=== PATIENT | female | born 2000 ===

== ENCOUNTER 2024-07-23 21:22 | Emergency (ER) | payer SELFPAY ==
--- NOTE | ~2024-07-23 | US_ITS ---
CORRECTED REPORT corrected order description [facility] 07/24/24 This report was recreated on 07/24/24. Original report was Pelvic ultrasound. Clinical History: First trimester , vaginal bleeding Technique: Realtime transabdominal and transvaginal scanning of the pelvis was performed. Color flow Doppler and Doppler spectral analysis were performed. Findings: The uterus is anteverted, and contains an intrauterine gestation. Bantry-rump length of 5.8 cm corresponds to an estimated gestational age of 12 weeks 2 days. heart rate is 155 bpm. The right ovary measures 4.7 x 2.5 x 4.4 cm. Simple right ovarian cyst measures 2.3 cm in size. The left ovary measures 2.0 x 1.2 x 1.6 cm. No significant left ovarian or adnexal mass is seen. There is no evidence of free fluid in the cul de sac. Impression: Live intrauterine gestation, with estimated gestational age of 12 weeks 2 days. heart rate is 155 bpm. Reviewed, dictated and finalized at location M. MTDD Impression: Live intrauterine gestation, with estimated gestational age of 12 weeks 2 days. heart rate is 155 bpm.
[2024-07-23 21:29] VITALS: BP 113/66; PULSE 98; RESP 14; TEMP 36.5; O2SAT 100
[2024-07-23 21:55] LABS: Basophils Absolute Auto 0.1 K/mm3 (0.0-0.1); Basophils Percent Auto 0.4 % (0.2-1.2); Eosinophils Absolute Auto 0.3 K/mm3 (0-0.3); Eosinophils Percent Auto 2.1 % (0-4.4); Hematocrit 33.3 % (37.0-47.0); Hemoglobin 10.6 g/dL (12.0-15.0); Immature Granulocyte Absolute 0.05 K/mm3 (0.00-0.031); Immature Granulocyte Percent A 0.4 % (0-0.5); Lymphocytes Absolute Auto 2.31 K/mm3 (0.9-3.2); Lymphocytes Percent Auto 19.4 % (18.3-44.2); Mean Corpuscular HGB Conc 31.8 g/dl (32-36); Mean Corpuscular Hemoglobin 24.1 pg (26-34); Mean Corpuscular Volume 75.9 fl (80-100); Mean Platelet Volume 10.7 fl (7.4-10.4); Monocytes Absolute Auto 0.8 K/mm3 (0.1-0.6); Monocytes Percent Auto 6.6 % (2.6-8.5); Neutrophils Absolute Auto 8.4 K/mm3 (1.3-6.7); Neutrophils Percent Auto 71.1 % (45.5-73.1); Platelet Count Result 349 k/mm3 (150-375); Red Blood Count 4.39 M/mm3 (4.2-5.4); Red Cell Distribution Width 16.3 % (11.5-14.5); White Blood Count 11.9 K/mm3 (4.5-10.0)
[2024-07-23 22:08] LABS: Alanine Aminotransferase 12 U/L (6-35); Albumin Level 4.3 g/dL (3.5-5.1); Alkaline Phosphatase 67 U/L (38-126); Anion Gap 6 mmol/L (4-12); Aspartate Amino Transferase 17 U/L (14-36); Bilirubin,Total 0.2 mg/dL (0.2-1.3); Blood Urea Nitrogen 5 mg/dL (7-17); Calcium 9.3 mg/dL (8.4-10.2); Carbon Dioxide 24 mmol/L (22-30); Chloride 105 mmol/L (98-107); Estimated CRCL calculation 140 ml/min; Estimated Glomerular Filt Rate > 60; Glucose 102 mg/dL (65-110); Potassium 3.7 mmol/L (3.4-5.0); Prothrombin Time 13.2 Seconds (11.1-14.7); Sodium 135 mmol/L (137-145)
[2024-07-23 22:09] LABS: Partial Thromboplastin Time 25.5 Seconds (22.3-36.8)
[2024-07-23 23:03] VITALS: BP 109/72; PULSE 78; RESP 14; O2SAT 100
--- NOTE | 2024-07-23 23:20 | ED.PREGNANCY ---
HPI - General Chief complaint: Vaginal Bleeding Stated complaint: 12 weeks preg, vag bleed and cramping Time Seen by Provider: 07/23/24 22:15 Source: patient Mode of arrival: ambulatory Limitations: no limitations History of Present Illness HPI Narrative: Patient is a 23-year-old female who presents the ED with report of vaginal bleeding. Patient is , approximately 12 weeks gestation. She reports she had some clear discharge this morning and noted that it has progressed to light vaginal spotting today. Also reports intermittent lower abdominal cramping. Patient reports she is currently visiting from [facility]. She has not had an ultrasound yet of her current . She is planning to follow up with an OBGYN there. Denies dysuria, hematuria. Denies nausea, vomiting, fevers. Blood type is AB-, she reports she received a RhoGam injection at 6 weeks at a clinic in [place]. Related Data Allergies Allergy/AdvReac Type Severity Reaction Status Date / Time No Known Allergies Allergy Verified 07/23/24 21:33 Review of Systems Review of Systems: All systems reviewed & are unremarkable except as noted in HPI. All systems reviewed & are unremarkable except as noted in HPI and below Exam Narrative: GENERAL: Well appearing, well-nourished, non-toxic, in no acute distress. HEAD: Normocephalic, atraumatic. RESPIRATORY: Airway patent, respirations nonlabored. Clear to auscultation bilaterally, no rales, rhonchi, wheezing. CARDIOVASCULAR: Regular rate and rhythm ABDOMINAL: Soft, minimal tenderness throughout lower abdomen, nondistended. Normoactive BS. MUSCULOSKELETAL: Moves all extremities. No gross deformities. SKIN: Warm, dry, normal color. NEURO: A&O X3. Speech clear. PSYCHIATRIC: Appropriate mood and affect. Normal interaction. Course Vital Signs Vital signs: Vital Signs Temperature 97.7 F 07/23/24 21:29 Pulse Rate 98 07/23/24 21:29 Respiratory Rate 14 07/23/24 21:29 Blood Pressure 113/66 07/23/24 21:29 Pulse Oximetry 100 07/23/24 21:29 Oxygen Delivery Room Air 07/23/24 21:29 Temperature 98.5 F 07/24/24 01:21 Pulse Rate 62 07/24/24 01:21 Respiratory Rate 14 07/24/24 01:21 Blood Pressure 116/72 07/24/24 01:21 Pulse Oximetry 98 07/24/24 01:21 Oxygen Delivery Room Air 07/23/24 21:29 MDM - OB/Uterine Contractions MDM Narrative Medical decision making narrative: Patient presented to ED with vaginal spotting, currently approximately 12 weeks gestation, . Has not had previous ultrasound for this . Vital signs are stable upon arrival. Patient is in no acute distress. No evidence of hemodynamic instability. CBC with white blood cell count of 11.9. Hemoglobin is slightly low at 10.6. No records to compare to. Microcytic. Normal platelets. CMP unremarkable. Beta hCG is 128,490. Again no records to compare to. Ultrasound was obtained to r/o ectopic and showing single live IUP, 12 weeks 0 days, good heart tones. No significant abnormalities noted on ultrasound. Patient was updated on ultrasound results, overall reassuring workup. Feel she is safe for discharge home with close outpatient follow-up with OBGYN in home state (lives in [place]). Patient's blood type is AB negative. Discussed receiving RhoGAM here in the ED, however patient adamantly declined this. She states she received a shot at the 6 week [place] and was told she would only need 1 throughout her . I discussed the reasoning behind giving RhoGAM and that it is routinely recommended in several intervals throughout , in addition to any time there is an episode of vaginal bleeding. I discussed the risks of refusing RhoGAM and that this may impact her future pregnancies. Patient voiced understanding of risks, but continues to refuse RhoGAM. States she will call her doctor. Patient states she is ready to be discharged at this time. She states their [employer] is waitin
[2024-07-24 01:21] VITALS: BP 116/72; PULSE 62; RESP 14; TEMP 36.9; O2SAT 98
== END 2024-07-24 01:22 | disposition home or self-care (01) ==
PROVIDERS: Student in an Organized Health Care Education/Training Program; Emergency Provider Physician Assistant
DX: O20.9 Hemorrhage in early pregnancy, unspecified (principal); Z3A.12 12 weeks gestation of pregnancy
CPT/HCPCS: 36415; 76801; 76817; 80053; 84702; 85025; 85461; 85610; 85730; 86850; 86900; 86901; 96372; 99284